=== PATIENT | female | born 1985 | race Caucasian/White ===

== ENCOUNTER 2018-07-16 16:34 | Emergency (ER) | payer MEDICAID ==
[~2018-07-16] VITALS: Ht 175.3 cm; Wt 54.4 kg
[~2018-07-16 16:34] MED LIST: BEN50 PO; DOCU-299 PO; LURA40TA PO; MAGN1.7538 PO; [UNRECOGNIZED DRUG - CODE] RC; [UNRECOGNIZED DRUG - OTHER] PO
[2018-07-16 16:36] VITALS: BP 124/64
--- NOTE | 2018-07-16 16:36 | NUR ---
PT BIB [facility] FOR PREBOOK
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
[2018-07-16 17:30] VITALS: BP 119/85
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
== END 2018-07-16 17:30 | disposition home or self-care (01) ==
LOC: MED 16:34
DX: M79.604 Pain in right leg (principal); M79.605 Pain in left leg; Z79.899 Other long term (current) drug therapy; W21.19XA Struck by other bat, racquet or club, initial encounter; Y93.89 Activity, other specified; Y92.098 Other place in other non-institutional residence as the place of occurrence of the external cause; Y99.8 Other external cause status
CPT/HCPCS: 99283